=== PATIENT | female | born 1985 | race American Indian/Alaskan Native ===

== ENCOUNTER 2017-06-21 15:46 | Emergency (ER) | payer OTHER ==
[2017-06-21 15:46] VITALS: BMI 61.6
[2017-06-21 17:19] LABS: BASO % 1.3 % (0.0-2.0); EOS % 1.3 % (0.0-4.0); HEMATOCRIT 36.3 % (34.0-47.0); LYMPH # 1.5 K/uL (1.0-4.3); LYMPH % 45.3 % (20.0-40.0); MEAN CORPUSCULAR HEMOGLOBIN 24.8 pg (27.0-31.0); MEAN CORPUSCULAR HGB CONC 31.3 g/dL (33.0-37.0); MONO # 0.2 K/uL (0.0-0.8); MONO % 7.2 % (0.0-10.0); RED CELL DISTRIBUTION WIDTH 19.4 % (11.5-14.5); WHITE BLOOD COUNT 3.4 K/uL (4.8-10.8)
[2017-06-21 17:28] LABS: MEAN CELL VOLUME 79.1 fL (81.0-99.0)
[2017-06-21 17:32] LABS: ALKALINE PHOSPHATASE 94 U/L (38-126); ALT/SGPT 40 U/L (9-52); AST/SGOT 24 U/L (14-36); BILIRUBIN,TOTAL 0.4 mg/dL (0.2-1.3); BLOOD UREA NITROGEN 8 mg/dL (7-17); CALCIUM 9.3 mg/dl (8.6-10.4); CARBON DIOXIDE 26 mmol/L (22-30); CHLORIDE 104 mmol/L (98-107); GFR AFRICAN-AMERICAN > 60; GLUCOSE,RANDOM 79 mg/dL (65-105); SODIUM 137 mmol/L (132-148); TOTAL PROTEIN 8.1 g/dL (6.3-8.3)
[2017-06-21 17:38] LABS: INR 1.1; PARTIAL THROMBOPLASTIN TIME 30 SECONDS (21-34)
--- NOTE | 2017-06-21 17:46 | RAD ---
PROCEDURE: CHEST RADIOGRAPH, 1 VIEW HISTORY: cp` COMPARISON: Chest radiographs 07/29/2016. FINDINGS: LUNGS: Somewhat diminished inspiratory volume noted. No acute infiltrate identified bilaterally nevertheless. PLEURA: No pneumothorax or pleural fluid seen. CARDIOVASCULAR: Normal. OSSEOUS STRUCTURES: No significant abnormalities. VISUALIZED UPPER ABDOMEN: Normal. OTHER FINDINGS: None. IMPRESSION: Diminished inspiratory volume. No acute infiltrate bilaterally nevertheless. Cardiomediastinal silhouette is stable and unremarkable.
[2017-06-21 17:51] LABS: RBC URINE 7 /hpf (0-3); URINE BACTERIA FEW (<OCC); URINE BILIRUBIN NEGATIVE (NEGATIVE); URINE GLUCOSE (UA) NORMAL (Normal); URINE HYALINE CAST 0-2 /lpf (0-2); URINE KETONE TRACE mg/dL (NEGATIVE); URINE LEUKOCYTE ESTERASE 3+ Leu/uL (Negative); URINE PROTEIN 1+ mg/dL (NEGATIVE); URINE UROBILINOGEN NORMAL mg/dL (0.2-1.0); WBC URINE 12 /hpf (0-5)
[2017-06-21 17:53] LABS: URINE BLOOD TRACE (NEGATIVE); URINE COLOR YELLOW (YELLOW)
--- NOTE | 2017-06-21 18:12 | C.PDOC ---
History Of Present Illness 31-year-old female presents to the emergency department with complaints of left- sided pain in chest and rib area for the past three to four months. Patient has Hx of schizoeffective disorder, and states she has a psychiatrist who gives her Ativan and Haldol. Patient denies cough or fever, shortness of breath, palpitations. Patient also states she wants to be tested for HIV because a 3 months ago she had unprotected sex. She denies vaginal discharge/bleeding, dysuria/hematuria or pelvic pain. Time Seen by Provider: 06/21/17 16:18 Chief Complaint (Nursing): Chest Pain History Per: Patient History/Exam Limitations: no limitations Onset/Duration Of Symptoms: Intermittent Episodes, Persistent Severity: Mild Past Medical History Reviewed: Historical Data, Nursing Documentation, Vital Signs Vital Signs: Last Vital Signs Temp 98.5 F 06/21/17 18:54 Pulse 113 H 06/21/17 18:54 Resp 18 06/21/17 18:54 BP 130/81 06/21/17 18:54 Pulse Ox 95 06/21/17 18:59 - Medical History PMH: Anemia, Bronchitis, Gall Bladder Disease, HTN, Schizophrenia (affective), Sexually Transmitted Disease (Chlamydia, gonorrhea) Surgical History: Cholecystectomy (1 year ago) - [facility] Procedures PACKED CELL TRANSFUSION (03/11/13) RADIOGRAPHY OF GALLBLADDER & BILE DUCT USING L OSM CONTRAST (07/20/15) RESECTION OF GALLBLADDER, PERCUTANEOUS ENDOSCOPIC APPROACH (07/20/15) Family History: States: No Known Family Hx - Social History Hx Tobacco Use: No Hx Alcohol Use: No Hx Substance Use: No - Immunization History Hx Tetanus Toxoid Vaccination: No Hx Influenza Vaccination: No Hx Pneumococcal Vaccination: No Review Of Systems Except As Marked, All Systems Reviewed And Found Negative. Constitutional: Negative for: Fever, Chills Cardiovascular: Positive for: Chest Pain. Negative for: Palpitations Respiratory: Negative for: Cough, Shortness of Breath Gastrointestinal: Negative for: Nausea, Vomiting, Abdominal Pain, Diarrhea Genitourinary: Negative for: Dysuria, Hematuria, Vaginal Discharge, Vaginal Bleeding Musculoskeletal: Negative for: Back Pain Neurological: Negative for: Weakness, Numbness, Headache, Dizziness Physical Exam - Physical Exam Appears: Well, Non-toxic, No Acute Distress, Other (Morbidly obese, appears anxious) Skin: Warm, Dry, No Rash Head: Normacephalic Eye(s): bilateral: Normal Inspection Oral Mucosa: Moist Neck: Normal, Normal ROM Chest: Symmetrical Cardiovascular: Rhythm Regular (Tachycardic), No Murmur Respiratory: Normal Breath Sounds, No Rales, No Rhonchi, No Wheezing Gastrointestinal/Abdominal: Normal Exam, Bowel Sounds, Soft, No Tenderness, No Guarding, No Rebound Back: No CVA Tenderness Extremity: Normal ROM Neurological/Psych: Oriented x3 ED Course And Treatment - Laboratory Results Result Diagrams: 06/21/17 17:11 06/21/17 17:11 ECG: Interpreted By Me, Viewed By Me ECG Rhythm: Sinus Tachycardia ECG Interpretation: No Acute Changes Interpretation Of ECG: Normal [place] Rate From EC (bpm) O2 Sat by Pulse Oximetry: 95 (on RA) Pulse Ox Interpretation: Normal - Radiology CXR: Interpreted by Me, Viewed By Me CXR Interpretation: Yes: No Acute Disease. No: Infiltrates Progress Note: Bloodwork, EKG, CXR and UA ordered and reviewed. Patient given PO Xanax. Reevaluation Time: 19:00 Reassessment Condition: Improved (Patient reassessed, is resting comfortably and states she feels better. Vitals have improved. Symptoms likely due to anxiety, will discharge home. Patient instructed to follow up with PMD in 1-2 days, and she understands she should return to ED if symptoms worsen.) Disposition Counseled Patient/Family Regarding: Studies Performed, Diagnosis, Need For Followup - Disposition Referrals: Jeffy John MD [Medical Doctor] - Disposition: HOME/ ROUTINE Disposition Time: 19:00 Condition: STABLE Additional Instructions: FOLLOW UP WITH YOUR DOCTOR IN 1-2 DAYS RETURN TO ER IF SYMPTOMS WORSEN Instructions: Noncardiac Chest Pain (ED) Forms: [employer] (Japanese) Print Language: KOREAN - Clinical Impression Clinical Impression: Non-cardiac chest pain, Anxiety - Scribe Statement The provider has reviewed the documentation as recorded by the Scribe (Edith Quan) All medical record entries made by the Scribe were at my direction and personally dictated by me. I have reviewed the chart and agree that the record accurately reflects my personal performance of the history, physical exam, medical decision making, and the department course for this patient. I have also personally directed, reviewed, and agree with the discharge instructions and disposition.
[2017-06-21 18:44] LABS: THYROID STIMULATING HORMONE 1.34 mIU/L (0.46-4.68)
[2017-06-21 18:55] VITALS: BP 130/81; PULSE 113; RESP 18; TEMP 98.5
[2017-06-21 19:00] VITALS: O2SAT 95
--- NOTE | 2017-06-22 15:40 | CARD ---
APPROVED REPORT EKG Measurement Heart [id number] <Conclusion> Sinus tachycardia Nonspecific T wave abnormality Abnormal ECG
== END 2017-06-21 19:04 | disposition home or self-care (01) ==
LOC: C.ER 15:46
DX: F41.9 Anxiety disorder, unspecified (principal); R07.89 Other chest pain; I10 Essential (primary) hypertension; F20.9 Schizophrenia, unspecified
CPT/HCPCS: 71010; 80053; 81001; 82550; 82553; 84443; 84484; 84703; 85025; 85378; 85610; 85730; 86703; 93005; 99285; G0480